=== PATIENT | male | born 1990 | race Caucasian/White ===

== ENCOUNTER 2021-07-02 08:51 | Emergency (ER) | payer OTHER ==
[~2021-07-02] VITALS: Ht 177.8 cm; Wt 95.4 kg
--- NOTE | 2021-07-02 09:05 | PHYS DOC ---
Past History Additional Past Medical Histor: chronic back pain Past Surgical History: Other Additional Past Surgical Histo: melanoma R timple; vastectomy Adult General Chief Complaint Chief Complaint: CHEST PAIN HPI HPI Patient is a 31yo healthy male presenting via [facility] custody for vaccine reaction. Patient reportedly got his booster vaccine of unknown brand yesterday. States he has had myalgias, body aches, sweats and felt heart palpitations. He has no medical history, takes no meds on a daily basis. Admits his heart is sensitive to caffeine which usually causes him to be tachycardic but he has not consumed any caffeine today. He reported his symptoms and when evaluated by [facility], patient as found to be tachycardic ~130bpm and so he was sent to our ER for evaluation. On arrival, patient still complaining of generalized body aches. He has not taken any medications for this today. Review of Systems Review of Systems Fourteen body systems of review of systems have been reviewed. See HPI for pertinent positives and negative responses, other hendrix all other systems are negative, non-pertinent or non-contributory Allergies Allergies Allergies Coded Allergies Type Severity Reaction Last Updated Verified No Known Drug Allergies 07/02/21 No Physical Exam Physical Exam Constitutional: Well developed, well nourished, no acute distress, non-toxic appearance. HENT: Normocephalic, atraumatic, bilateral external ears normal, oropharynx moist, no oral exudates, nose normal. Eyes: PERRLA, EOMI, conjunctiva normal, no discharge. Neck: Normal range of motion, no tenderness, supple, no stridor. Cardiovascular: Heart rate tachycardic, sinus rhythm, no murmurs rubs or gallops Lungs & Thorax: Bilateral breath sounds clear to auscultation Abdomen: Bowel sounds normal, soft, no tenderness, no masses, no pulsatile masses. Nonsurgical abdomen, no peritoneal signs Skin: Warm, dry, no erythema, no rash. Back: No tenderness, no CVA tenderness. Extremities: No tenderness, no cyanosis, no clubbing, ROM intact, no edema. Neurologic: Alert and oriented X 3, grossly normal motor & sensory function, no focal deficits noted. Psychologic: Affect normal, judgement normal, mood normal. Current Patient Data Vital Signs Vital Signs Date Time Temp Pulse Resp B/P (MAP) Pulse Ox O2 Delivery O2 Flow Rate FiO2 07/02/21 08:57 99.4 122 21 138/86 (103) 98 Room Air Lab Results Current Medications Medications (Trade) Dose Ordered Sig/Carroll Route PRN Reason Start Time Stop Time Status Last Admin Dose Admin Sodium Chloride 1,000 ml @ 1,000 mls/hr 1X ONCE IV 07/02/21 09:15 07/02/21 10:14 DC 07/02/21 09:18 Sodium Chloride 1,000 ml @ 1,000 mls/hr 1X ONCE IV 07/02/21 09:15 07/02/21 10:14 DC Aspirin (Aspirin Chewable) 324 mg 1X ONCE PO 07/02/21 09:15 07/02/21 09:16 DC 07/02/21 09:23 Acetaminophen (Tylenol) 1,000 mg 1X ONCE PO 07/02/21 09:15 07/02/21 09:16 DC 07/02/21 09:24 EKG EKG EKG ordered and interpreted by myself at 0900 hrs. as sinus tachycardia at 118 bpm, unremarkable intervals, no axis deviation, T wave inversion noted in lead III, no STEMI Radiology/Procedures Radiology/Procedures EXAMINATION: Chest radiograph. VIEWS: Single AP view of the chest COMPARISON: None INDICATION:31 years, Male, tachycardia. FINDINGS: Normal cardiomediastinal silhouette. No focal consolidation. No pleural effusion or pneumothorax. No acute osseous process. IMPRESSION: No acute cardiopulmonary process. Electronically signed by: Salomon Mcdermott DO (07/02/2021 9:35 AM) [id number] Heart Score C/O Chest Pain: No HEART Score for Chest Pain: HEART Score for Chest Pain Response (Comments) Value History Slighlty/Non-Suspicious 0 ECG Normal 0 Age < 45 0 Risk Factors No Risk Factors 0 Troponin < Normal Limit 0 Total 0 Risk Factors: Risk Factors: DM, Current or recent (<one month) smoker, HTN, HLP, family history of CAD, obesity. Risk Scores: Risk Factors: DM, Current or recent (<one month) smoker, HTN, HLP, family history of CAD, obesity. Course & Med Decision Making Course & Med Decision Making Tachycardic otherwise ABCs unremarkable HPI, PE and ER workup non-concerning Patient's tachycardia and symptoms improved with ASA, tylenol and IVF rehydratio n I discussed HEART score and fact that little indication for further treatment, workup or hospitalization exists, patient agrees. Continued supportive care recommended for likely dx vaccine reaction Victorino Disclaimer Victorino Disclaimer This electronic medical record was generated, in whole or in part, using a voice recognition dictation system. Departure Departure: Impression: Primary Impression: Vaccine reaction Disposition: HOME / SELF CARE / HOMELESS Condition: STABLE Additional Instructions: As discussed prior to ER departure, your vitals, physical exam and comprehensive ER work-up were nonconcerning for any emergent or surgical issues. Your heart rate and symptoms improved with supportive care practices provided in ER setting. As discussed, there is little indication for further diagnostic work- up in ER setting and/or need for hospitalization. Please continue the supportive care practices that should include Tylenol and/or ibuprofen as needed for aches and pains in addition to good fluid intake. Please contact your primary care physician immediately after ER departure to review ER visit today and need for close outpatient follow-up. Any concerning signs or symptoms present prior to outpatient follow-up please do not hesitate to come back for repeat evaluation. Is a pleasure to take care of you and I wish you the best going forward RANCHO BOATENG DO Jul 02, 2021 09:05
[2021-07-02] MEDS ORDERED: IV NORMAL SALINE 1,000ML 1,000 ML IV ONE ×2 (09:15)
[2021-07-02] MEDS ORDERED: ACETAMINOPHEN 500 MG TABLET PO ONE (09:15)
[2021-07-02] MEDS ORDERED: ASPIRIN CHEWABLE 81 MG TABLET. PO ONE (09:15)
--- NOTE | 2021-07-02 09:19 | EKG ---
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
[2021-07-02 09:37] LABS: BASO % 1 % (0-3); EOS # 0.2 x10^3/uL (0.0-0.7); EOS % 2 % (0-3); HEMATOCRIT 48.6 % (39.0-53.0); HEMOGLOBIN 16.3 g/dL (13.0-17.5); LYMPH % 13 % (24-48); MEAN CORPUSCULAR HEMOGLOBIN 30 pg (25-35); MEAN CORPUSCULAR HGB CONC 34 g/dL (31-37); MEAN CORPUSCULAR VOLUME 90 fL (79-100); MONO # 0.6 x10^3/uL (0.0-1.1); MONO % 8 % (0-9); NEUT # 5.7 x10^3uL (1.8-7.7); NEUT % 76 % (31-73); PLATELET COUNT 221 x10^3/uL (140-400); RED BLOOD COUNT 5.42 x10^6/uL (4.30-5.70); RED CELL DISTRIBUTION WIDTH 13.3 % (11.5-14.5); WHITE BLOOD COUNT 7.4 x10^3/uL (4.0-11.0)
--- NOTE | 2021-07-02 09:37 | RAD ---
EXAMINATION: Chest radiograph. VIEWS: Single AP view of the chest COMPARISON: None INDICATION:31 years, Male, tachycardia. FINDINGS: Normal cardiomediastinal silhouette. No focal consolidation. No pleural effusion or pneumothorax. No acute osseous process. IMPRESSION: No acute cardiopulmonary process. Electronically signed by: Salomon Mcdermott DO (07/02/2021 9:35 AM) [id number]
[2021-07-02 09:53] LABS: CALCIUM 9.4 mg/dL (8.5-10.1); GFR 86.1; POTASSIUM 4.2 mmol/L (3.5-5.1)
[2021-07-02 09:59] LABS: ALBUMIN 4.3 g/dL (3.4-5.0); ALBUMIN/GLOBULIN RATIO 1.4 (1.0-1.7); TOTAL BILIRUBIN 0.8 mg/dL (0.2-1.0); TOTAL PROTEIN 7.4 g/dL (6.4-8.2)
[2021-07-02 11:19] VITALS: BP 135/87
== END 2021-07-02 11:19 | disposition home or self-care (01) ==
LOC: EEVIPCON 08:51 → ER 08:51
DX: R00.0 Tachycardia, unspecified (principal); T50.B95A Adverse effect of other viral vaccines, initial encounter; G89.29 Other chronic pain; Y92.89 Other specified places as the place of occurrence of the external cause
CPT/HCPCS: 36415; 71045; 80053; 83735; 84484; 85025; 93005; 96360; 96361; 99285; J7030